=== PATIENT | female | born 1985 | race Caucasian/White ===

== ENCOUNTER 2017-11-07 07:13 | Emergency (ER) | payer SELFPAY ==
[2017-11-07 07:47] LABS: URINE HCG POC HCG NEGATIVE (Negative)
[2017-11-07 07:50] LABS: BILIRUBIN,URINE NEGATIVE (NEG); CLARITY,URINE CLEAR; COLOR,URINE YELLOW; GLUCOSE,URINE NEGATIVE (NEG); NITRITE,URINE NEGATIVE (NEG); PH,URINE 5.5; PROTEIN,URINE NEGATIVE (NEG-TRACE); UROBILINOGEN,URINE 0.2 mg/dL (0.2 mg/dL)
[2017-11-07] MEDS: diphenhydrAMINE HCL 25 MG CAPSULE PO (07:53)
[2017-11-07] MEDS: METOCLOPRAMIDE 10 MG TABLET. PO (07:53)
[2017-11-07] MEDS: predniSONE 20 MG TABLET PO (07:53)
[2017-11-07] MEDS: KETOROLAC 60 MG/2 ML INJ. IM (07:53)
[2017-11-07 08:14] LABS: BACTERIA,URINE 0 /HPF (0-FEW); RBC,URINE 0 /HPF (0-2); SQUAMOUS EPITHELIAL CELL,UR FEW /LPF; WBC,URINE OCC /HPF (0-4)
== END 2017-11-07 08:40 | disposition home or self-care (01) ==
LOC: ER 07:13
DX: G43.909 Migraine, unspecified, not intractable, without status migrainosus (principal)
CPT/HCPCS: 81001; 81025; 96372; 99284; J1885; J7512; J8597; Q0163